=== PATIENT | female | born 1975 | race Caucasian/White ===

== ENCOUNTER → 2019-09-13 14:32 | Outpatient (BNVA) | payer SELFPAY | PROVIDERS: Visit Provider Obstetrics & Gynecology | DX: Z34.93 Encounter for supervision of normal pregnancy, unspecified, third trimester (principal) | CPT/HCPCS: 76805; 80053; 80307; 81000; 82950; 85027; 86592; 86803; 86850; 86900; 87340; 87491; 87591; 88175 ==

== ENCOUNTER → 2019-09-14 15:03 | Outpatient (BNVA) | payer SELFPAY | PROVIDERS: Visit Provider Obstetrics & Gynecology | DX: Z34.90 Encounter for supervision of normal pregnancy, unspecified, unspecified trimester (principal); O09.893 Supervision of other high risk pregnancies, third trimester | CPT/HCPCS: 84443 ==

== ENCOUNTER → 2019-09-29 08:07 | Outpatient (BNVA) | payer SELFPAY | PROVIDERS: Visit Provider Obstetrics & Gynecology | DX: O99.810 Abnormal glucose complicating pregnancy (principal); Z34.90 Encounter for supervision of normal pregnancy, unspecified, unspecified trimester; Z86.32 Personal history of gestational diabetes | CPT/HCPCS: 81000; 82951; 82952 ==

== ENCOUNTER → 2019-10-27 14:48 | Outpatient (BNVA) | payer SELFPAY | PROVIDERS: Visit Provider Nurse Practitioner Women's Health | DX: O09.893 Supervision of other high risk pregnancies, third trimester (principal); O99.013 Anemia complicating pregnancy, third trimester; O99.89 Other specified diseases and conditions complicating pregnancy, childbirth and the puerperium; Z28.3 Underimmunization status; O09.299 Supervision of pregnancy with other poor reproductive or obstetric history, unspecified trimester | CPT/HCPCS: 84315; 85027 ==

== ENCOUNTER → 2019-11-10 15:03 | Outpatient (BNVA) | payer SELFPAY | PROVIDERS: Visit Provider Obstetrics & Gynecology | DX: O09.893 Supervision of other high risk pregnancies, third trimester (principal); Z3A.00 Weeks of gestation of pregnancy not specified | CPT/HCPCS: 81000; 87081 ==

== ENCOUNTER → 2019-11-17 15:20 | Outpatient (BNVA) | payer SELFPAY | PROVIDERS: Visit Provider Obstetrics & Gynecology | DX: Z34.90 Encounter for supervision of normal pregnancy, unspecified, unspecified trimester (principal) | CPT/HCPCS: 81000 ==

== ENCOUNTER → 2019-11-30 11:49 | Outpatient (BNVA) | payer SELFPAY | PROVIDERS: Visit Provider Obstetrics & Gynecology | DX: O09.893 Supervision of other high risk pregnancies, third trimester (principal); O99.820 Streptococcus B carrier state complicating pregnancy; O99.013 Anemia complicating pregnancy, third trimester; O99.89 Other specified diseases and conditions complicating pregnancy, childbirth and the puerperium; Z28.3 Underimmunization status; O24.410 Gestational diabetes mellitus in pregnancy, diet controlled; O98.813 Other maternal infectious and parasitic diseases complicating pregnancy, third trimester; Z3A.39 39 weeks gestation of pregnancy | CPT/HCPCS: 81000 ==

== ENCOUNTER 2019-12-01 00:19 | Outpatient (CLI) | payer SELFPAY ==
[2019-12-01 00:33] VITALS: BMI 32.9
[2019-12-01 00:44] VITALS: BP 116/70; PULSE 93; RESP 18; TEMP 36.7
[2019-12-01 00:58] VITALS: BP 0/0
[2019-12-01 00:59] VITALS: BP 114/71; PULSE 85
[2019-12-01 01:14] VITALS: BP 101/59; PULSE 82
[2019-12-01 01:27] LABS: Actim Prom Negative
[2019-12-01 01:29] VITALS: BP 100/60; PULSE 79
[2019-12-01 01:30] LABS: Nitrazine Paper, PH Inconclusive
[2019-12-01 01:48] VITALS: BP 100/60; PULSE 79; RESP 16; TEMP 36.7
== END 2019-12-01 01:52 | disposition home or self-care (01) ==
LOC: OPOB 00:23 → OBGYN 00:43
PROVIDERS: Obstetrics & Gynecology; Visit Provider Obstetrics & Gynecology
DX: O26.899 Other specified pregnancy related conditions, unspecified trimester (principal); Z3A.00 Weeks of gestation of pregnancy not specified
CPT/HCPCS: 59025; 83986; 84112; 99211

== ENCOUNTER 2019-12-04 22:20 | Inpatient (IN) | payer SELFPAY ==
[2019-12-04] VITALS (10 sets, daily range): BP systolic 0–146; BP diastolic 0–77; PULSE 79–87; TEMP 36.7; BMI 32.9
[2019-12-04] MEDS: ampicillin 2,000 MG in sodium chloride 0.9% (plus) 50 ML 100 MG IV (22:34)
[2019-12-04 22:44] LABS: Basophils % 0.2 %; Eosinophils % 0.1 %; Hematocrit 38.6 % (37.0-47.0); Hemoglobin 12.5 g/dL (11.5-15.3); Lymphocytes # 1.4 10^3/uL (0.8-4.8); Lymphocytes % 12.5 %; Mean Corpuscular HGB Conc 32.4 g/dL (30.0-36.0); Mean Corpuscular Hemoglobin 30.6 pg (28.0-34.0); Mean Corpuscular Volume 94.4 fL (81-99); Mean Platelet Volume 10.4 fL (7.4-10.4); Monocytes # 0.7 10^3/uL (0.2-0.9); Monocytes % 5.8 %; Neutrophils # 9.1 10^3/uL (1.8-7.7); Neutrophils % 80.8 %; Nucleated Red Blood Cells % 0 %; Platelet Count 147 10^3/cmm (130-400); Red Blood Count 4.09 10^6/uL (4.1-5.3); Red Cell Distribution Width 16.7 % (12.1-15.1); White Blood Count 11.3 10^3/uL (4.0-10.0)
[2019-12-05] VITALS (18 sets, daily range): BP systolic 0–134; BP diastolic 0–89; PULSE 60–94; RESP 16–18; TEMP 36.4–36.8; O2SAT 96–97
--- NOTE | 2019-12-05 00:48 | P.PCNOB_ITS ---
Delivery Note: Date of delivery: December 05, 2019 Pre-delivery diagnoses: Term Post-delivery diagnoses: delivered Procedure: Spontaneous vaginal delivery Delivering Physician: Jeremy Bello M.D. Estimated blood loss (mL): 500 Findings: Type of delivery: Spontaneous vaginal delivery Complicated by shoulder dystocia resolved with Nicolette maneuver. Baby Male . Apgars: 8/9. weight: 4770 g. EBL: 500 mL. Lacerations: None. Pre-Delivery Course: The patient is a 44yo G 14 P 11 at 39+5 weeks EGA who has been receiving care from [facility]. She has been experiencing painful uterine contractions for the past 4 hours. The contractions are occurring at 4 minute intervals with approximately 30 second duration. She continues to feel movement between the contractions. She denies vaginal bleeding or rupture of membranes. LMP: 03/02/2019 Estimated date of confinement: 12/07/2019 CC: Onset of labor at term. HPI: Received appropriate care. Daily vitamins since start of care. labs have all been normal, including negative for HIV. She was found to positive for Group B Strep from screening at 36 weeks. She has gained approximately 8 lbs throughout the . She denies a history of HTN during . Glucose tolerance screening for gestational diabetes was negative. Delivery: The patient was noted to be complete and pushing, so was placed in the dorsal lithotomy position, prepped and draped in the usual sterile fashion for a vaginal delivery. Pt. Noted to have no anesthesia. At time the patient delivered a Viable At term Male weighing 4770 g with scores of 8 and 9 at one and five minutes, respectively. The vertex was delivered spontaneously over Intact perineum. The patient was asked to push and the head delivered spontaneously in the TANG position, over an intact perineum. After delivery of the head we were unable to deliver the anterior shoulder by applying moderate downward motion. The diagnosis of shoulder dystocia was made. The patient and her family as well as the attending staff were in formed. The nursing staff were instructed to assist with the Nicolette maneuver, the nurse was instructed to proceed with supra-pubic pressure and delivery of the anterior shoulder was successful in less than a 10 seconds. A nuchal cord was checked and None noted. The remainder of the infant was easily delivered and the oropharynx and nasopharynx was bulb suctioned. The infant was noted to have spontaneous cry and spontaneous movement of all four extremities. The cord was clamped x 2 and cut and noted to have 2 arteries and one vein. The infant was passed to the Mother's abdomen where Nursing personnel were in attendance. The placenta delivered intact spontaneously and the uterus Was explored. 20 units of Pitocin was placed in the IV bag to firm the uterus. Examination of the cervix and vaginal vault did not reveal any lacerations. A vaginal pack was then placed. Patient was instructed to administer the patient Methergine control bleeding. Examination of the perineum showed No lacerations. The vaginal pack was then removed. The patient tolerated this procedure well, and recovered in L&D with her infant To the OB marin. All sponge and needle counts were correct. Post-Delivery Status: Stable Coding Level of Care Code Acute Cathode Ray Tube Assembler for Shirag Latoya
[2019-12-05] MEDS: lanolin oint 7 gm 1 APPLIC TOPICAL (02:11)
[2019-12-05] MEDS: benzocaine-menthol 78 gm Canister 1 SPRAY TOPICAL (02:12)
[2019-12-05] MEDS: prenatal vitamin Capsule 1 CAP PO (08:56)
[2019-12-05] MEDS: docusate sodium 100 mg Capsule PO ×2 (08:56→18:17)
[2019-12-05 13:00] LABS: Hematocrit 36.7 % (37.0-47.0); Mean Corpuscular HGB Conc 32.7 g/dL (30.0-36.0); Mean Corpuscular Hemoglobin 31.3 pg (28.0-34.0); Mean Corpuscular Volume 95.8 fL (81-99); Mean Platelet Volume 10.5 fL (7.4-10.4); Platelet Count 169 10^3/cmm (130-400); Red Blood Count 3.83 10^6/uL (4.1-5.3); Red Cell Distribution Width 16.6 % (12.1-15.1); White Blood Count 11.5 10^3/uL (4.0-10.0)
[2019-12-06 06:00] VITALS: BP 108/71; PULSE 80; RESP 16; TEMP 36.4
[2019-12-06 09:56] VITALS: BP 132/82; PULSE 66; RESP 18; TEMP 36.5; O2SAT 98
--- NOTE | 2019-12-06 12:22 | PM.OBGYDC ---
Discharge Providers SUPERVISOR PHOSPHATIC FERTILIZER Date of Admission: 12/04/19 22:20 Date of Discharge: 12/06/19 Attending Provider at Admission: Jeremy Bello MD Attending Provider at Discharge: Jeremy Bello MD Diagnoses at Discharge Discharge Diagnosis (1) Term delivered: Status: Acute Problem details: Status post spontaneous vaginal delivery day 1. Afebrile and hemodynamically stable Reason for Visit Reason for Visit: -LABOR Hospital Course Hospital Course: The patient is a 44yo G 14 P 11 at 39+5 weeks EGA who has been receiving care from [facility]. She has been experiencing painful uterine contractions for the past 4 hours. The contractions are occurring at 4 minute intervals with approximately 30 second duration. She continues to feel movement between the contractions. She denies vaginal bleeding or rupture of membranes. LMP: 03/02/2019 Estimated date of confinement: 12/07/2019 CC: Onset of labor at term. HPI: Received appropriate care. Daily vitamins since start of care. labs have all been normal, including negative for HIV. She was found to positive for Group B Strep from screening at 36 weeks. She has gained approximately 8 lbs throughout the . She denies a history of HTN during . Glucose tolerance screening for gestational diabetes was negative. Came to labor and delivery complaining of contractions. She was admitted in active labor and progressed to have a spontaneous vaginal delivery complicated by shoulder dystocia resolved by McRobert's maneuver. observation was uneventful. She is tolerating diet well ambulating without difficulty. Scheduled to return next week Friday with the infant for circumcision by Dr. Lynch. She is afebrile hemodynamically stable Information Peripartum Data: Infant Delivery Method: Vaginal Physical Exam Narrative: EXAM NARRATIVE: GA; alert and oriented x 3 HEENT: normal Breasts: engorged Nipples - skin intact Lungs; clear to auscultation Heart: regular rhythm, no murmurs. Abd: Appropriately tender. BS+. Uterine fundus below umbilicus. No Fundal Tenderness. Perineum: normal lochia. Extremities: no edema, no cyanosis, no tenderness. Discharge Data Data Completed and Pending: Labs from last 24 hours 12/05/19 12:45 WBC 11.5 H RBC 3.83 L Hgb 12.0 Hct 36.7 L MCV 95.8 MCH 31.3 MCHC 32.7 RDW 16.6 H Plt Count 169 MPV 10.5 H Laboratory Tests 12/04/19 22:20 WBC 11.3 H Hgb 12.5 Hct 38.6 Plt Count 147 Vitals: Last Vital Signs Temp 97.7 F 12/06/19 09:56 Pulse 66 12/06/19 09:56 Resp 18 12/06/19 09:56 BP 132/82 12/06/19 09:56 Pulse Ox 98 12/06/19 09:56 Discharge Plan Discharge Patient Disposition: Home, Self-Care Condition: Stable Prescriptions: New acetaminophen 325 mg Tablet 650 mg PO Q6H PRN (Reason: Mild pain or temp > 100.4) Qty: 60 RF: 0 docusate sodium 100 mg Capsule 100 mg PO BID Qty: 60 RF: 0 ibuprofen 800 mg Tablet 800 mg PO TID Qty: 60 RF: 0 Continued herbal calcium extract PO BID RF: 0 herbal iron extract PO BID RF: 0 c veg minerals PO DAILY RF: 0 prenat.vits,annie,syl-jekk-fjknk Tablet 1 tab PO DAILY RF: 0 yeast fungal detox PO DAILY RF: 0 cyruta plus PO DAILY RF: 0 Adult Probiotic 3 billion cell capsule 3,000 mmu cells PO DAILY RF: 0 evening primrose oil 500 mg capsule 500 mg PO DAILY RF: 0 ferrous sulfate 325 mg (65 mg iron) tablet,delayed release (DR/EC) 325 mg PO BID RF: 0 folic acid 400 mcg tablet 0.4 mg PO DAILY RF: 0 lecithin PO RF: 0 calcium carbonate PO RF: 0 28 mg iron- 800 mcg Tablet 1 tab PO DAILY RF: 0 Discharge Orders: Discharge Order (Routine); Ordered 12/06/19 Ordered By: Jeremy Bello Referrals: Jeremy Bello MD [Physician] - Discharge Diet: Regular Discharge Activity: Increase activity as tolerated Patient Instructions: Vitamins (By mouth), OB Discharge Report, OB Food/Drug Interaction Guide, OB Proud Parent Packet, OB Vaginal Deliveries Activity Restrictions/Additional Instructions: Pelvic rest for 6 weeks (no sex, no tampons, no vaginal douches). Return to the emergency room if any fever, increased bleeding or pain. Discharge Attestations SUPERVISOR PHOSPHATIC FERTILIZER Time Spent in Discharge Care*: greater than 30 min Specific Discharge Activities: Specific discharge activities: educating patient and educating and/or supporting family/caregiver Coding Level of Care Code Acute Undertaker Helper for Chg Fwd Diagnoses Term delivered O80
--- NOTE | 2019-12-06 13:41 | PC.NURSE ---
Verified with patient that she did not want a follow up appointments with [facility]. Patient stated she went with her last one but wasn't sure if she would or not. Patient instructed to call women's [facility] and make an appointment if she desired one. Patient verbalized understanding.
[2019-12-06 13:46] VITALS: BP 128/78; PULSE 68; RESP 16; TEMP 36.6; O2SAT 99
== END 2019-12-06 13:12 | disposition home or self-care (01) | DRG 807 ==
LOC: OPOB 22:31 → OBGYN 22:31
PROVIDERS: Admitting Provider Obstetrics & Gynecology; Visit Provider Obstetrics & Gynecology
DX: O99.824 Streptococcus B carrier state complicating childbirth (principal); Z37.0 Single live birth; O66.0 Obstructed labor due to shoulder dystocia; Z3A.39 39 weeks gestation of pregnancy
CPT/HCPCS: 12345; 36415; 59409; 85025; 85027; 99211; J0290

== ENCOUNTER → 2021-09-11 12:14 | Outpatient (BNVA) | payer SELFPAY | PROVIDERS: Visit Provider Obstetrics & Gynecology | DX: Z34.90 Encounter for supervision of normal pregnancy, unspecified, unspecified trimester (principal) | CPT/HCPCS: 80307; 81000; 82950; 84443; 85027; 86592; 86803; 86850; 86900; 87086; 87340; 87491; 87591 ==

== ENCOUNTER → 2021-09-12 00:01 | Outpatient (BNVA) | payer SELFPAY | PROVIDERS: Visit Provider Obstetrics & Gynecology | DX: Z34.90 Encounter for supervision of normal pregnancy, unspecified, unspecified trimester (principal) | CPT/HCPCS: 84439; 84481 ==

== ENCOUNTER → 2021-09-13 08:18 | Outpatient (BNVA) | payer SELFPAY | PROVIDERS: Visit Provider Obstetrics & Gynecology | DX: Z34.90 Encounter for supervision of normal pregnancy, unspecified, unspecified trimester (principal) | CPT/HCPCS: 82951; 82952 ==

== ENCOUNTER → 2021-10-10 08:51 | Outpatient (BNVA) | payer SELFPAY | PROVIDERS: Visit Provider Obstetrics & Gynecology | DX: O09.90 Supervision of high risk pregnancy, unspecified, unspecified trimester (principal); R79.89 Other specified abnormal findings of blood chemistry; Z3A.00 Weeks of gestation of pregnancy not specified | CPT/HCPCS: 76805; 80053; 81000; 84443; 85025; 87086 ==

== ENCOUNTER 2021-12-03 08:19 | Outpatient (CLI) | payer SELFPAY ==
--- NOTE | 2021-12-03 08:30 | US_ITS ---
WS: [id number] All ULTRASOUND OB LIMITED TECHNIQUE: Limited ultrasound examination of the fetus. G 15 P12 CLINICAL INFORMATION: O09.299 - Supervision of with other poor reprod... COMPARISON: October 10, 2021 FINDINGS: Cervix is long and closed measuring 4.6 cm Single interuterine gestation. Placental location is anterior. Placenta grade: 1 heart rate 144 BPM. COTY 11.5 cm presentation is breech. Anatomy: BDP: 7.0 cm = 28w0d HC: 27.4 cm = 29w6d AC: 24.7 cm = 28w6d FEMUR LENGTH: 5.4 cm = 28w5d Estimated weight: 1296 g., 66 %. EGA by ultrasound: 28w6d JAQUAN by ultrasound: 02/19/2022 US/[place] [id number] IMPRESSION: 1. Cervix is long and closed measures 4.6 cm. 2. Normal COTY. 3. presentation is breech. 4. Normal nose/lip and profile visualized today. 5. Normal interval growth.
== END 2021-12-03 08:20 | disposition home or self-care (01) ==
LOC: RAD 08:20
PROVIDERS: Visit Provider Obstetrics & Gynecology
DX: O09.299 Supervision of pregnancy with other poor reproductive or obstetric history, unspecified trimester (principal); Z3A.26 26 weeks gestation of pregnancy
CPT/HCPCS: 76816; 81000; 82951; 82952; 84439; 84443; 84481; 85027

== ENCOUNTER 2021-12-31 09:42 | Outpatient (CLI) | payer SELFPAY ==
--- NOTE | 2021-12-31 10:00 | US_ITS ---
WS: [id number] LIMITED OBSTETRICAL ULTRASOUND HISTORY: Large for gestational age. COMPARISON: 12/03/2021, 08/01/2021 Presentation: Vertex. Cervix: Closed and normal length. Placenta: Anterior, no previa or abruption. Grade: 1 HEART: FHR of 131 BPM. measurements: BPD = 8.5 cm = 34w1d; 93rd percentile HC = 30.4 cm = 33w5d; 60th percentile AC = 28.7 cm = 32w5d; 70th percentile FL = 6.3 cm = 32w5d; 57th percentile COTY: 14.1 cm, near the 50th percentile EFW: 2084 g; 72nd %. AGA by ultrasound: 33w2d JAQUAN by ultrasound: 02/16/2022 Appropriate interval growth of the fetus since the first trimester ultrasound. BPD is measuring great er than the 90th percentile for age. Today's biometry is within 2 weeks. US/[place] [id number] IMPRESSION: 1. Single intrauterine gestation of 33 weeks 2 days with an EDC of 02/16/2022. A ppropriate growth since the first trimester ultrasound. 2. head measuring at the 93rd percentile for age. 3. Estimated weight at the 72nd percentile for age.
== END 2021-12-31 09:43 | disposition home or self-care (01) ==
PROVIDERS: Visit Provider Obstetrics & Gynecology
DX: O09.299 Supervision of pregnancy with other poor reproductive or obstetric history, unspecified trimester (principal); O09.90 Supervision of high risk pregnancy, unspecified, unspecified trimester
CPT/HCPCS: 76816; 81000; 84439; 84443; 84481

== ENCOUNTER → 2022-01-14 09:09 | Outpatient (BNVA) | payer SELFPAY | PROVIDERS: Visit Provider Obstetrics & Gynecology | DX: O09.90 Supervision of high risk pregnancy, unspecified, unspecified trimester (principal); O99.891 Other specified diseases and conditions complicating pregnancy; Z64.1 Problems related to multiparity; O09.299 Supervision of pregnancy with other poor reproductive or obstetric history, unspecified trimester; Z86.32 Personal history of gestational diabetes; O99.019 Anemia complicating pregnancy, unspecified trimester; E03.9 Hypothyroidism, unspecified; Z3A.00 Weeks of gestation of pregnancy not specified; D64.9 Anemia, unspecified | CPT/HCPCS: 81000 ==

== ENCOUNTER → 2022-01-28 14:10 | Outpatient (BNVA) | payer SELFPAY | PROVIDERS: Visit Provider Obstetrics & Gynecology | DX: O09.90 Supervision of high risk pregnancy, unspecified, unspecified trimester (principal); E03.9 Hypothyroidism, unspecified; O99.891 Other specified diseases and conditions complicating pregnancy; Z64.1 Problems related to multiparity; O09.299 Supervision of pregnancy with other poor reproductive or obstetric history, unspecified trimester; O99.019 Anemia complicating pregnancy, unspecified trimester; Z3A.00 Weeks of gestation of pregnancy not specified; D64.9 Anemia, unspecified | CPT/HCPCS: 81000; 84439; 84443; 84481; 87081 ==

== ENCOUNTER → 2022-02-11 14:27 | Outpatient (BNVA) | payer SELFPAY | PROVIDERS: Visit Provider Obstetrics & Gynecology | DX: O09.90 Supervision of high risk pregnancy, unspecified, unspecified trimester (principal); O99.019 Anemia complicating pregnancy, unspecified trimester; O09.299 Supervision of pregnancy with other poor reproductive or obstetric history, unspecified trimester; Z86.32 Personal history of gestational diabetes; Z3A.00 Weeks of gestation of pregnancy not specified | CPT/HCPCS: 81000 ==

== ENCOUNTER 2022-02-20 09:53 | Inpatient (IN) | payer SELFPAY ==
[2022-02-20] VITALS (52 sets, daily range): BP systolic 100–173; BP diastolic 53–132; PULSE 63–117; RESP 16–18; TEMP 36.2–37.1; O2SAT 99–100; BMI 32.9
--- NOTE | 2022-02-20 08:12 | W.PM.OPSUD ---
Surgery/Procedure H&P Update DATE OF PROCEDURE: February 20, 2022 DATE H&P PERFORMED: 02/11/22 H&P UPDATE INFORMATION: I have reviewed H&P completed within last 30 days, I have examined patient prior to procedure and No changes to prior documentation Related Problem List Diagnoses (1) Hypothyroidism: (2) Anemia affecting , antepartum: (3) History of macrosomia in in prior , currently : (4) Advanced maternal age affecting , antepartum: (5) Grand multiparity: (6) Supervision of high risk , antepartum:
[2022-02-20] MEDS: dextrose 5%-lactated ringers 1,000 ML 125 ML IV ×2 (10:22→18:37)
[2022-02-20] MEDS: oxytocin 30 UNIT/500 ML BAG IV (10:22)
[2022-02-20 11:32] LABS: Basophils % 0.2 %; Eosinophils % 0.5 %; Hematocrit 39.7 % (37.0-47.0); Hemoglobin 13.1 g/dL (11.5-15.3); Lymphocytes # 0.8 10^3/uL (0.8-4.8); Lymphocytes % 14.8 %; Mean Corpuscular Hemoglobin 32.3 pg (28.0-34.0); Mean Platelet Volume 10.1 fL (7.4-10.4); Monocytes # 0.4 10^3/uL (0.2-0.9); Monocytes % 6.9 %; Neutrophils # 4.37 10^3/uL (1.8-7.7); Neutrophils % 77.2 %; Nucleated Red Blood Cells % 0 %; Platelet Count 158 10^3/cmm (130-400); Red Blood Count 4.05 10^6/uL (4.1-5.3); Red Cell Distribution Width 16.2 % (12.1-15.1); White Blood Count 5.7 10^3/uL (4.0-10.0)
[2022-02-20] MEDS: lactated ringers 1,000 ML 999 ML IV (13:10)
--- NOTE | 2022-02-20 14:37 | ANES.PREANE2 ---
Pre-Anesthetic Assessment Height/Weight: Height 1.57 m Weight 81.647 kg Temp Pulse BP Pulse Ox O2 Del Method 97.3 F L 77 120/66 100 02/20/22 12:16 02/20/22 14:21 02/20/22 14:21 02/20/22 13:44 02/20/22 09:49 Familial anesthetic complications: none Was Beta Carlos taken within 24 hours: N/A Was Clonidine taken within 24 hours: N/A Social No alcohol and No tobacco Exam alert, oriented x 3, clear to auscultation bilaterally and regular rate & rhythm Airway Submandibular: within normal limits Cervical ROM: within normal limits Mallampati: Class II Dentition: full CV/HEM Anemia Metabolic Thyroid Disease Anesthetic Plan ASA status: 2 Anesthesia: Regional (specify below) (labor epidural) Medications/Allergies Home Medications Medication Instructions Recorded Confirmed Last Taken Type cyruta plus PO DAILY 10/04/19 02/11/22 Unknown History lactobacillus combination no.8 3 3,000 mmu cells PO DAILY 10/04/19 02/11/22 Unknown History billion cell capsule (Adult Probiotic) acetaminophen 325 mg tablet 650 mg PO Q6H PRN Mild pain or 12/06/19 02/11/22 Unknown Rx temp > 100.4 #60 tabs levomefolate calcium PO 09/11/21 02/11/22 Unknown History [L-Methylfolate] magnesium PO 09/11/21 02/11/22 Unknown History prenat.vits,annie,uol-omsj-ijkdr 1 tab PO DAILY 09/11/21 02/11/22 Unknown History vitamin E acetate PO 09/11/21 02/11/22 Unknown History Sea Veg Minerals PO DAILY 10/10/21 02/11/22 Unknown History aloe vera PO 10/10/21 02/11/22 Unknown History chlorophyllin-alfalfa PO 10/10/21 02/11/22 Unknown History chromium picolinate PO 10/10/21 02/11/22 Unknown History cranberry fruit concentrate PO 10/10/21 02/11/22 Unknown History enzymes PO TID 10/10/21 02/11/22 Unknown History thytrophin PO BID 10/10/21 02/11/22 Unknown History ferrous sulfate 325 mg (65 mg 325 mg PO DAILY #90 tabs 10/15/21 02/11/22 Unknown Rx iron) tablet,delayed release Ningxia red PO BID 12/03/21 02/11/22 Unknown History evening primrose oil 500 mg capsule 500 mg PO DAILY 12/03/21 02/11/22 Unknown History herbal tinctures PO TID 12/03/21 02/11/22 Unknown History coenzyme Q10 [Co Q-10] PO 12/31/21 02/11/22 Unknown History flaxseed oil miscellaneous 12/31/21 02/11/22 Unknown History lecithin PO 12/31/21 02/11/22 Unknown History levothyroxine 25 mcg capsule 25 mcg PO DAILY #35 caps 01/01/22 02/11/22 Unknown Rx thyroid (pork) 15 mg tablet 15 mg PO DAILY #90 tabs 01/28/22 02/11/22 Unknown Rx ([place] Thyroid) Allergies Allergy/AdvReac Type Severity Reaction Status Date / Time No Known Allergies Allergy Verified 02/11/22 15:25 Current Medications Generic Name Dose Route Start Last Admin Trade Name Freq PRN Reason Stop Dose Admin Oxytocin 30 unit in 500 mls @ 1 mls/hr 02/20/22 10:00 02/20/22 12:15 Pitocin IV 10 milliunit/min .Q24H TAMMY 10 mls/hr Titration Protocol 1 MILLIUNIT/MIN Dextrose/Lactated Ringer's 1,000 mls @ 125 mls/hr 02/20/22 10:00 02/20/22 13:10 Dextrose 5%-Lactated Ringers IV Infused .Q8H TAMMY Infusion Ropivacaine 200 mg in 100 mls @ 13 mls/hr 02/20/22 12:45 02/20/22 13:09 Naropin Premix EPIDURAL 13 mls/hr .Q7H42M TAMMY Administration Lactated Ringer's 1,000 mls @ 999 mls/hr 02/20/22 12:42 02/20/22 13:10 Lactated Ringers IV 999 mls/hr .Q1H1M PRN Administration See label comments Thyroid 15 mg 02/20/22 09:00 02/20/22 12:18 Thyroid 60 Mg Tablet PO Not Given DAILY TAMMY PFSH Anesthesia Medical History No pertinent past medical history Denies diabetes, asthma, hypertension, seizures, DVT/PE. PCP: Zion Henriquez AR Surgical History No history of previous surgery Family History Grandmother Thyroid condition Maternal Heart disease Paternal Family/Other Hypertension Paternal aunt, Paternal uncle Stroke Paternal aunt, paternal uncle Breast cancer Maternal aunt diagnosed in her 40s Grandfather Diabetes Maternal Colon cancer Paternal; diagnosed at age 70 Denies family history of Ovarian cancer Hyperlipidemia Uterine cancer Social History Smoking and tobacco status: never smoked Female Reproductive History : 15 Data Anesthesia : 02/20/22 10:10 Short CBC 02/20/22 Range/Units 10:10 WBC 5.7 (4.0-10.0) 10^3/uL Hgb 13.1 (11.5-15.3) g/dL Hct 39.7 (37.0-47.0) % MCV 98.0 (81-99) fl Plt Count 158 (130-400) 10^3/cmm Neut % (Auto) 77.2 % Neut # (Auto) 4.37 (1.8-7.7) 10^3/uL Cardiac Studies: No Data to Display Anesthesia Procedures Epidural Time Out Performed: Yes Consents Signed: Procedure Consent Consent: requested by attending/covering physician, from patient, risks and benefits reviewed and patient agrees to proceed Lumbar Level: L3-L4 Epidural position: sitting Epidural procedure: sterile prep of area, 1% lidocaine to numb the area, 18 g needle, neg for paresthesia, test dose given (2% lido used for test dose), placed PCEA, no systemic response, sterile dressing applied and 0.2% Ropiavacaine @ mls/hr (13) Additional Comments: SANDRA at 5cm, cath at 10cm, bolused 5mls of 2% lido
[2022-02-20] MEDS: ondansetron 2 mg/ML SDV 2 mL 4 MG IVP (16:13)
[2022-02-20] MEDS: miSOPROStol 200 mcg Tablet 800 MCG PR (17:11)
--- NOTE | 2022-02-20 17:13 | P.PCNOB_ITS ---
Delivery Note: Date of delivery: February 20, 2022 Pre-delivery diagnoses: iup@39 w2d Post-delivery diagnoses: same-delivered Procedure: Delivering Physician: Dr. Hendrickson Estimated blood loss (mL): 100 Findings: term female in the TORO presentation. Mild shoulder dystocia relieved with Nicolette maneuver. Pre-Delivery Course: The patient was admitted for induction at term. She had pitocin started. She achieved 5 cm and had AROM performed with clear fluid. She received an epidural for pain management. She had pitocin stopped. She progressed to complete cervical dilation and began to push. Delivery: The patient had complete cervical dilation and began to push. The head delivered in the TORO position over an intact perineum under epidural anesthesia. The nose and mouth were bulb suctioned. The shoulders and body delivered atraumatically. The baby was placed onto the mother's abdomen. The cord was clamped and cut. The placenta delivered spontaneously. It was inspected and found to be intact. Inspection of the perineum revealed no laceration and no repair was required. Estimated blood loss 100 mL. Apgars on baby were 9 at 1 minute and 9 at 5 minutes. Weight of baby is 8 pounds 11 ounces. Mother and baby were stable post delivery. History History History 15 Term 12 0 Miscarriages/Ectopic 2 Living Children 12 Coding Level of Care Code Acute Senior Accounting Analyst for Chg Latoya
[2022-02-20] MEDS: meperidine 50 mg/mL INJ 12.5 MG IVP (18:35)
--- NOTE | 2022-02-20 19:10 | PC.NURSE ---
1000 PATIENT HAS LOTS OF VERY LARGE VARICOSITIES ON LEGS AND HER RIGHT LABIA IS EXTREMEMLY LARGE WELL, LEFT ONE HAS THEM WELL BUT NOT NEAR BIG RIGHT LABIA. SHE ALSO HAS LARGE AREAS AROUND HER ANKLES.
[2022-02-20] MEDS: ibuprofen 800 mg tablet PO (20:12)
[2022-02-20] MEDS: docusate sodium 100 mg Capsule PO (20:13)
[2022-02-20] MEDS: HYDROcodone-acetaminophen 5-325 mg Tablet PO (22:21)
[2022-02-21] VITALS (9 sets, daily range): BP systolic 99–118; BP diastolic 56–69; PULSE 55–61; RESP 18; TEMP 36.1–36.4
[2022-02-21 05:12] LABS: Hematocrit 37.5 % (37.0-47.0); Hemoglobin 12.4 g/dL (11.5-15.3); Mean Corpuscular HGB Conc 33.1 g/dL (30.0-36.0); Mean Corpuscular Hemoglobin 32.3 pg (28.0-34.0); Mean Corpuscular Volume 97.7 fl (81-99); Mean Platelet Volume 10.2 fL (7.4-10.4); Platelet Count 154 10^3/cmm (130-400); Red Blood Count 3.84 10^6/uL (4.1-5.3); Red Cell Distribution Width 16.1 % (12.1-15.1)
[2022-02-21] MEDS: ibuprofen 800 mg tablet PO ×2 (08:51→14:21)
[2022-02-21] MEDS: docusate sodium 100 mg Capsule PO (08:51)
[2022-02-21] MEDS: prenatal vitamin Capsule 1 CAP PO (08:51)
--- NOTE | 2022-02-21 09:28 | ANE.PACU2 ---
Inpatient post-anesthesia follow up: Airway intact: Yes Vital signs: Temperature 97.0 F Pulse Rate 55 Respiratory Rate 18 Blood Pressure 118/69 Pulse Oximetry 100 Oxygen Delivery Me thod Room Air Oxygen Flow Rate Fraction of Inspir ed Oxygen Hydration adequate: Yes Nausea and vomiting: No Pain level: 2 Mental status: Baseline Additional Comments: Shivering, demerol given IV
--- NOTE | 2022-02-21 11:22 | PM.DCS ---
Discharge Providers Date of Admission: 02/20/22 09:53 Date of Discharge: February 21, 2022 Attending Provider at Admission: Alexandria Hendrickson MD Attending Provider at Discharge: Alexandria Hendrickson MD Diagnoses at Discharge Discharge Diagnosis (1) Hypothyroidism: Status: Acute (2) Anemia affecting , antepartum: Status: Acute (3) History of macrosomia in in prior , currently : Status: Acute (4) Advanced maternal age affecting , antepartum: Status: Acute (5) Grand multiparity: Status: Acute (6) Supervision of high risk , antepartum: Status: Acute Reason for Visit Reason for Visit: IOL Hospital Course Hospital Course The patient was admitted for induction of labor. She had spontaneous delivery of a term female . She did well and was ready for discharge on day #1 Physical Exam Narrative: The patient is doing well this morning. No concerns. Normal lochia, . Const: COMMON NORMALS: no acute distress, patient oriented x3, no limitations, alert and well nourished Resp: COMMON NORMALS: normal respiratory effort EFFORT & INSPECTION: Yes able to speak in complete sentences GI: COMMON NORMALS: Soft to palpation and non-tender PALPATION: Yes Soft to palpation Extremity: COMMON NORMALS: no calf tenderness Neuro: COMMON NORMALS: patient oriented x3 SENSORIUM/ORIENTATION: Yes alert Psych: COMMON NORMALS: mental status grossly normal, Normal thought process present, cooperative, normal affect and speech normal SPEECH: Yes normal speech THOUGHT PROCESS: Normal thought process present Urinary Catheter Management: Alarcon: Cath Placed During This Visit: yes, but has since been removed by the nurse Reason for Continuing Indwelling Catheter: Not indwelling catheter Urinary Catheter Date of Insertion: 02/20/22 Urinary Catheter Time of Insertion: 13:50 Date Urinary Catheter Removed: 02/20/22 Time Urinary Catheter Discontinued: 16:55 Discharge Data Studies Completed and Pending Laboratory Results WBC 8.0 10^3/uL (4.0-10.0) 02/21/22 05:04 RBC 3.84 10^6/uL (4.1-5.3) L 02/21/22 05:04 Hgb 12.4 g/dL (11.5-15.3) 02/21/22 05:04 Hct 37.5 % (37.0-47.0) 02/21/22 05:04 MCV 97.7 fl (81-99) 02/21/22 05:04 MCH 32.3 pg (28.0-34.0) 02/21/22 05:04 MCHC 33.1 g/dL (30.0-36.0) 02/21/22 05:04 RDW 16.1 % (12.1-15.1) H 02/21/22 05:04 Plt Count 154 10^3/cmm (130-400) 02/21/22 05:04 MPV 10.2 fL (7.4-10.4) 02/21/22 05:04 Neut % (Auto) 77.2 % 02/20/22 10:10 Lymph % (Auto) 14.8 % 02/20/22 10:10 [place] % (Auto) 6.9 % 02/20/22 10:10 Eos % (Auto) 0.5 % 02/20/22 10:10 Baso % (Auto) 0.2 % 02/20/22 10:10 Neut # (Auto) 4.37 10^3/uL (1.8-7.7) 02/20/22 10:10 Lymph # (Auto) 0.8 10^3/uL (0.8-4.8) 02/20/22 10:10 [place] # (Auto) 0.4 10^3/uL (0.2-0.9) 02/20/22 10:10 Eos # (Auto) 0.0 10^3/uL (0.0-0.8) 02/20/22 10:10 Baso # (Auto) 0.0 10^3/uL (0.0-0.1) 02/20/22 10:10 Nucleated RBC % (auto) 0 % 02/20/22 10:10 Nucleated RBCs # 0.0 /100WBC 02/20/22 10:10 Vitals Last Vital Signs Temp 97.0 F L 02/21/22 02:50 Pulse 55 L 02/21/22 07:54 Resp 18 02/20/22 18:35 BP 118/69 02/21/22 07:54 Pulse Ox 100 02/20/22 13:44 O2 Del Method 02/20/22 09:49 Discharge Plan Discharge Patient Disposition: Home Condition: Stable Prescriptions: Continued cyruta plus PO DAILY Adult Probiotic 3 billion cell capsule 3,000 mmu cells PO DAILY Sea Veg Minerals PO DAILY enzymes PO TID chromium picolinate PO thytrophin PO BID chlorophyllin-alfalfa PO aloe vera PO cranberry fruit concentrate PO ferrous sulfate 325 mg (65 mg iron) tablet,delayed release (DR/EC) 325 mg PO DAILY Qty: 90 1RF Ningxia red PO BID herbal tinctures PO TID evening primrose oil 500 mg capsule 500 mg PO DAILY Rx Instructions: give with meal/snack flaxseed oil miscellaneous coenzyme Q10 [Co Q-10] PO lecithin PO thyroid (pork) [[place] Thyroid] 15 mg tablet 15 mg PO DAILY Qty: 90 4RF levomefolate calcium [L-Methylfolate] PO prenat.vits,annie,cky-gpfo-uzsmh Tablet 1 tab PO DAILY vitamin E acetate PO magnesium PO levothyroxine 25 mcg capsule 25 mcg PO DAILY Qty: 35 0RF acetaminophen 325 mg Tablet 650 mg PO Q6H PRN (Reason: Mild pain or temp > 100.4) Qty: 60 0RF Discharge Orders: Discharge Order (Routine); Ordered 02/21/22 Ordered By: Alexandria Hendrickson Referrals: Alexandria Hendrickson MD [Physician] - 03/08/22 1:15 pm Patient Instructions: Depression (GEN), Preeclampsia and Eclampsia After Delivery (GEN), Hemorrhage (GEN), OB Discharge Report, OB Food/Drug Interaction Guide, OB Care at Home, Opioid Safety, OB Home Care, OB Vaginal Deliveries - [facility], Abnormal Bleeding Discharge Attestations Time Spent in Discharge Care*: less than 30 min Quality Metrics Clinical Quality Measures [ No reported AMI, CVA or VTE this stay] Coding Level of Care Code Acute Chg FW DC note Diagnoses Hypothyroidism E03.9 Anemia affecting , antepartum O99.019 History of macrosomia in in prior , currently O09.299 Advanced maternal age affecting , antepartum Grand multiparity Z64.1 Supervision of high risk , antepartum O09.90
--- NOTE | 2022-02-21 19:13 | PC.NURSE ---
Patient Refused MMR vaccine. Education provided by nurse regarding being non-immune and patient still refused.
== END 2022-02-21 19:43 | disposition home or self-care (01) | DRG 807 ==
LOC: OPOB 13:09 → OBGYN 13:09
PROVIDERS: Admitting Provider Obstetrics & Gynecology; Visit Provider Obstetrics & Gynecology
DX: O99.284 Endocrine, nutritional and metabolic diseases complicating childbirth (principal); Z37.0 Single live birth; E03.9 Hypothyroidism, unspecified; O99.02 Anemia complicating childbirth; D64.9 Anemia, unspecified; Z3A.39 39 weeks gestation of pregnancy
CPT/HCPCS: 36415; 51702; 59025; 59409; 85025; 85027; 99211; J2175; J2405; J2795

== ENCOUNTER → 2022-03-08 14:10 | Outpatient (BNVA) | payer SELFPAY | PROVIDERS: Visit Provider Obstetrics & Gynecology | DX: E03.9 Hypothyroidism, unspecified (principal) | CPT/HCPCS: 84439; 84443; 84481 ==

== ENCOUNTER → 2024-08-10 09:28 | Outpatient (BNVA) | payer SELFPAY | PROVIDERS: Visit Provider Nurse Practitioner Women's Health | DX: R10.2 Pelvic and perineal pain (principal); E03.9 Hypothyroidism, unspecified; Z12.4 Encounter for screening for malignant neoplasm of cervix | CPT/HCPCS: 81000; 84439; 84443; 84481; 87624 ==

== ENCOUNTER 2024-09-28 09:36 | Outpatient (RCR) | payer SELFPAY | END 2024-10-13 23:59 | disposition home or self-care (01) | LOC: SPT 09:36 | PROVIDERS: Visit Provider Nurse Practitioner Women's Health | DX: N81.9 Female genital prolapse, unspecified (principal); N39.46 Mixed incontinence | CPT/HCPCS: 97110; 97161; 97530 ==

== ENCOUNTER 2024-10-14 05:00 | Outpatient (RCR) | payer SELFPAY | END 2024-11-13 23:59 | disposition home or self-care (01) | LOC: SPT 05:00 | PROVIDERS: Visit Provider Nurse Practitioner Women's Health | DX: N81.9 Female genital prolapse, unspecified (principal); N39.46 Mixed incontinence | CPT/HCPCS: 97110; 97530 ==

== ENCOUNTER 2024-11-14 05:00 | Outpatient (RCR) | payer SELFPAY | END 2024-12-13 23:59 | disposition home or self-care (01) | LOC: SPT 05:00 | PROVIDERS: Visit Provider Nurse Practitioner Women's Health | DX: N81.9 Female genital prolapse, unspecified (principal); N39.46 Mixed incontinence | CPT/HCPCS: 97110 ==

== ENCOUNTER → 2024-11-23 11:45 | Outpatient (BNVA) | payer SELFPAY | PROVIDERS: Visit Provider Nurse Practitioner Women's Health | DX: Z34.90 Encounter for supervision of normal pregnancy, unspecified, unspecified trimester (principal) | CPT/HCPCS: 76805; 80307; 81025; 82950; 84443; 85025; 86592; 86762; 86803; 86850; 86900; 87086; 87340; 87491; 87591; 87661; 87806 ==

== ENCOUNTER → 2024-11-30 14:07 | Outpatient (BNVA) | payer SELFPAY | PROVIDERS: Visit Provider Nurse Practitioner Women's Health | DX: Z64.1 Problems related to multiparity (principal) | CPT/HCPCS: 81000 ==

== ENCOUNTER 2024-12-14 05:00 | Outpatient (RCR) | payer SELFPAY | END 2025-01-13 23:59 | disposition home or self-care (01) | LOC: SPT 05:00 | PROVIDERS: Visit Provider Nurse Practitioner Women's Health | DX: N81.9 Female genital prolapse, unspecified (principal); N39.46 Mixed incontinence | CPT/HCPCS: 97110 ==

== ENCOUNTER → 2024-12-22 14:35 | Outpatient (BNVA) | payer SELFPAY | PROVIDERS: Visit Provider Obstetrics & Gynecology | DX: O09.90 Supervision of high risk pregnancy, unspecified, unspecified trimester (principal); O99.019 Anemia complicating pregnancy, unspecified trimester | CPT/HCPCS: 84315; 85025 ==

== ENCOUNTER 2025-01-14 05:00 | Outpatient (RCR) | payer SELFPAY | END 2025-02-13 23:59 | disposition home or self-care (01) | LOC: SPT 05:00 | PROVIDERS: Visit Provider Nurse Practitioner Women's Health | DX: N81.9 Female genital prolapse, unspecified (principal); N39.46 Mixed incontinence | CPT/HCPCS: 97110 ==

== ENCOUNTER → 2025-01-19 13:15 | Outpatient (BNVA) | payer SELFPAY | PROVIDERS: Visit Provider Obstetrics & Gynecology | DX: O09.90 Supervision of high risk pregnancy, unspecified, unspecified trimester (principal) | CPT/HCPCS: 84315 ==

== ENCOUNTER → 2025-02-17 08:46 | Outpatient (BNVA) | payer SELFPAY | PROVIDERS: Visit Provider Obstetrics & Gynecology | DX: Z36.4 Encounter for antenatal screening for fetal growth retardation (principal); Z3A.34 34 weeks gestation of pregnancy | CPT/HCPCS: 76816 ==

== ENCOUNTER 2025-02-17 11:04 | Outpatient (CLI) | payer SELFPAY ==
[2025-02-17 11:56] LABS: INR 0.95 (0.8-1.2); Prothrombin Time 13.40 SECONDS (12.1-14.9)
== END 2025-02-17 11:05 | disposition home or self-care (01) ==
PROVIDERS: Visit Provider Nurse Practitioner Women's Health
DX: Z01.89 Encounter for other specified special examinations (principal); Z83.2 Family history of diseases of the blood and blood-forming organs and certain disorders involving the immune mechanism
CPT/HCPCS: 36415; 82950; 84315; 85025; 85610

== ENCOUNTER 2025-03-03 09:05 | Oncology outpatient (recurring) (ONCR) | payer SELFPAY ==
[2025-03-03] MEDS: iron sucrose 200 MG in sodium chloride 0.9% (100 ml) 100 ML IV (10:29)
[2025-03-03 11:08] VITALS: BP 112/64; PULSE 68; RESP 16; TEMP 36.8; O2SAT 98
== END 2025-03-15 23:59 | disposition home or self-care (01) ==
PROVIDERS: Visit Provider Nurse Practitioner Women's Health
DX: Z33.1 Pregnant state, incidental (principal); D63.8 Anemia in other chronic diseases classified elsewhere
CPT/HCPCS: 84315; 96365; J1756; J7050

== ENCOUNTER 2025-03-03 11:09 | Outpatient (CLI) | payer SELFPAY ==
--- NOTE | 2025-03-03 11:30 | USR_ITS ---
PROCEDURE INFORMATION: Exam: US , Follow up Exam date and time: 03/03/2025 11:46 AM Age: 49 years old Clinical indication: Screening exam; Routine US, uterus; Additional info: O09.90 - supervision of high risk , unspecified LABS AND CLINICAL REPORTS: Gestational age (Established): 34 w 5 d Estimated due date (Established): 04/09/2025 TECHNIQUE: Imaging protocol: Transabdominal ultrasound of the uterus, real time with image documentation. Follow-up (eg, re-evaluation of size by measuring standard growth parameters and amniotic fluid volume, re-evaluation of organ system(s) suspected or confirmed to be abnormal on a previous scan). COMPARISON: [place] [id number] 02/17/2025 8:52 AM FINDINGS: Gestation: Single live intrauterine gestation. heart rate: 165 bpm. presentation and position: Cephalic. Placenta: Posterior. Amniotic fluid (Qualitative): Adequate amount of amniotic fluid. Amniotic fluid index: COTY is 12.63 cm. BIOMETRY: Estimated weight: 2481.59 g. EFW by AC, BPD, FL, HC, [place] 1985, 44% percentile Biparietal diameter (BPD): 8.81 cm. EGA (BPD) is 35 w 4 d. 75.7 % percentile Head circumference (HC): 30.92 cm. EGA (HC) is 34 w 4 d. 13.7 % percentile Abdominal circumference (AC): 30.41 cm. EGA (AC) is 34 w 3 d. 45.5 % percentile Femur length (FL): 6.79 cm. EGA (FL) is 34 w 6 d. 46.6 % percentile HC/AC: 1.02. (Normal range: 0.93 - 1.11) FL/HC: 21.96. (Normal range: 20 - 22.23) FL/BPD: 77.07. (Normal range: 71 - 87) FL/AC: 22.33. (Normal range: 20 - 24) MATERNAL: Cervix: Cervical length measures 0 cm. US/[place] [id number] IMPRESSION: Single live intrauterine gestation with estimated age of 34 weeks 6 days and weight of 2482 g.
== END 2025-03-03 11:10 | disposition home or self-care (01) ==
LOC: RAD 11:10
PROVIDERS: Visit Provider Obstetrics & Gynecology
DX: O09.93 Supervision of high risk pregnancy, unspecified, third trimester (principal); O09.293 Supervision of pregnancy with other poor reproductive or obstetric history, third trimester; Z3A.34 34 weeks gestation of pregnancy
CPT/HCPCS: 76816

== ENCOUNTER 2025-03-17 08:33 | Outpatient (RCR) | payer SELFPAY | END 2025-03-21 08:54 | disposition home or self-care (01) | LOC: SPT 08:33 | PROVIDERS: Visit Provider Nurse Practitioner Women's Health | DX: N81.9 Female genital prolapse, unspecified (principal); N39.46 Mixed incontinence | CPT/HCPCS: 97110; 97530 ==

== ENCOUNTER → 2025-03-17 16:16 | Outpatient (BNVA) | payer SELFPAY | PROVIDERS: Visit Provider Obstetrics & Gynecology | DX: O09.90 Supervision of high risk pregnancy, unspecified, unspecified trimester (principal) | CPT/HCPCS: 84315; 87081 ==

== ENCOUNTER → 2025-03-31 15:59 | Outpatient (BNVA) | payer SELFPAY | PROVIDERS: Visit Provider Obstetrics & Gynecology | DX: O09.90 Supervision of high risk pregnancy, unspecified, unspecified trimester (principal); O09.299 Supervision of pregnancy with other poor reproductive or obstetric history, unspecified trimester | CPT/HCPCS: 84315 ==

== ENCOUNTER → 2025-04-07 15:07 | Outpatient (BNVA) | payer SELFPAY | PROVIDERS: Visit Provider Nurse Practitioner Women's Health | DX: Z34.90 Encounter for supervision of normal pregnancy, unspecified, unspecified trimester (principal) | CPT/HCPCS: 84315 ==

== ENCOUNTER 2025-04-14 03:54 | Inpatient (IN) | payer SELFPAY ==
[2025-04-14] VITALS (16 sets, daily range): BP systolic 103–165; BP diastolic 62–76; PULSE 67–91; RESP 16; TEMP 35.7–36.7; O2SAT 99; BMI 32.9
[2025-04-14 04:16] LABS: Hematocrit 37.8 % (36-47); Hemoglobin 12.70 g/dL (11.27-16.99); Mean Corpuscular HGB Conc 33.6 g/dL (30-55); Mean Corpuscular Hemoglobin 31.1 pg (27-33); Mean Corpuscular Volume 92.4 fl (85-98); Nucleated Red Blood Cells % 0 %; Platelet Count 149 10^3/cmm (157-399); Red Blood Count 4.09 10^6/uL (3.85-5.65); White Blood Count 8.98 10^3/uL (3.29-11.43)
[2025-04-14] MEDS: oxytocin 30 UNIT/500 ML BAG 999 UNIT IV (06:36)
--- NOTE | 2025-04-14 06:45 | PM.DELIVERY ---
Delivery Note: Date of delivery: April 14, 2025 Pre-delivery diagnoses: 40 w 5 d active labor Post-delivery diagnoses: 40 w 5 d active labor vaginal delivery Procedure: vaginal delivery Op report anesthesia: None Delivering Physician: Tristan Dickson MD Estimated blood loss (mL): 500 Findings: , vigorous infant Cord gases obtained Normal placenta and cord No episiotomy / lacerations EBL: 500 cc No complications Pre-Delivery Course: normal labor course fetus reassurring throughout Delivery: vaginal Post-Delivery Status: good History History History 16 Term 13 0 Miscarriages/Ectopic 2 Living Children 13 A&P Assessment and plan 1. Vaginal delivery: PDMP PDMP Reviewed: Not Reviewed Coding Level of Care Code Acute Code for Chg Fwd Diagnoses Vaginal delivery O80
--- NOTE | 2025-04-14 14:20 | PC.NURSE ---
Addendum entered by Camilla Sales RN 04/14/25 14:58: 04/14/25 at 1330: Patient asked this nurse when she would be discharged. This nurse stated that earliest possible discharge would be [address] Dickson. This nurse educated patient on the risks of leaving the hospital before discharge. Educated patient that she is a high risk for hemorrhage. Educated patient on signs and symptoms of illness and/or hemorrhage and to go to ER if these symptoms appear. Patient stated I understand the risks. I would like to leave now. Addendum entered by Camilla Sales RN 04/14/25 14:37: 04/14/25 at 1330: Patient asked this nurse when she would be discharged. This nurse stated that earliest possible discharge would be [address] Dickson. This nurse educated patient on the risks of leaving the hospital before discharge. Educated patient that she is a high risk for hemorrhage. Educated patient on signs and symptoms that warrant an office or ER visit. Patient stated I understand the risks. I would like to leave now. Original Note: 04/14/25 at 1330: Patient stated she would like to leave AMA. This nurse educated patient on the risks of leaving the hospital before discharge.
--- NOTE | 2025-04-14 20:20 | PM.OBGYDC ---
Discharge Providers [employer] Date of Admission: 04/14/25 03:54 Date of Discharge: 04/14/25 Attending Provider at Admission: Tristan Dickson MD Attending Provider at Discharge: Tristan Dickson MD Consults: none Primary [employer]: Tristan Dickson MD Diagnoses at Discharge Discharge Diagnosis 1. Vaginal delivery: Details from hospital stay: 49 y.o. A2 [facility] April 09, 2025 no complications presented complaining of painful uterine contractions patient proceeded to complete dilatation fetus was reassuring throughout patient delivered vaginally without any complications there were no episiotomy or lacerations , on the evening of delivery, patient insisted on leaving the hospital and signed out against medical advice. Reason for Visit Reason for Visit: contractions Brief History: 49 y.o. A2 [facility] April 09, 2025 no complications presented complaining of painful uterine contractions Hospital Course Hospital Course 49 y.o. A2 [facility] April 09, 2025 no complications presented complaining of painful uterine contractions patient proceeded to complete dilatation fetus was reassuring throughout patient delivered vaginally without any complications there were no episiotomy or lacerations , on the evening of delivery, patient insisted on leaving the hospital and signed out against medical advice. Advised patient that she may be at higher risk for complications, such as infection, bleeding, etc. Patient insisted on leaving against medical advice Patient signed AMA Advised patient to return to clinic within one week for followup Advised patient to return to ER if fever, chills, headache, blurry vision, nausea, vomiting, abdominal pain; vaginal bleeding or discharge; shortness of breath, chest pain, leg pains or swelling; inability to void, perineal pain or swelling; feelings of depression or mood changes; thoughts of suicide or harming others; inability to care for baby. Information Peripartum Data: Delivery Method: Vaginal Laceration description: None complications: none Physical Exam Const: COMMON NORMALS: no acute distress, patient oriented x3 and alert Resp: COMMON NORMALS: normal respiratory effort and clear to auscultation bilaterally AUSCULTATION: clear to auscultation bilaterally Cardio: COMMON NORMALS: regular rate and regular rhythm RATE: regular rate RHYTHM: regular rhythm GI: COMMON NORMALS: Normal to inspection, nondistended, normoactive bowel sounds present and non-tender Neuro: COMMON NORMALS: patient oriented x3 SENSORIUM/ORIENTATION: Yes alert History History History 16 Term 13 0 Miscarriages/Ectopic 2 Living Children 13 Discharge Data Studies Completed and Pending Laboratory Results WBC 8.98 10^3/uL (3.29-11.43) 04/14/25 03:35 RBC 4.09 10^6/uL (3.85-5.65) 04/14/25 03:35 Hgb 12.70 g/dL (11.27-16.99) 04/14/25 03:35 Hct 37.8 % (36-47) 04/14/25 03:35 MCV 92.4 fl (85-98) 04/14/25 03:35 MCH 31.1 pg (27-33) 04/14/25 03:35 MCHC 33.6 g/dL (30-55) 04/14/25 03:35 RDW 15.1 % (12.1-15.1) 04/14/25 03:35 Plt Count 149 10^3/cmm (157-399) L 04/14/25 03:35 MPV 10.3 fL (7.4-10.4) 04/14/25 03:35 Neut % (Auto) 80.1 % 04/14/25 03:35 Lymph % (Auto) 12.5 % 04/14/25 03:35 [place]arnett % (Auto) 6.3 % 04/14/25 03:35 Eos % (Auto) 0.4 % 04/14/25 03:35 Baso % (Auto) 0.3 % 04/14/25 03:35 Neut # (Auto) 7.18 10^3/uL (1.8-7.7) 04/14/25 03:35 Lymph # (Auto) 1.1 10^3/uL (0.8-4.8) 04/14/25 03:35 [place]arnett # (Auto) 0.6 10^3/uL (0.2-0.9) 04/14/25 03:35 Eos # (Auto) 0.0 10^3/uL (0.0-0.8) 04/14/25 03:35 Baso # (Auto) 0.0 10^3/uL (0.0-0.1) 04/14/25 03:35 Nucleated RBC % (auto) 0 % 04/14/25 03:35 Nucleated RBCs # 0.0 /100WBC 04/14/25 03:35 Blood Type A Positive 04/14/25 03:35 Rho(D) Type Rh positive 04/14/25 03:35 Antibody Screen Negative 04/14/25 03:35 Procedures Performed vaginal delivery Vitals Last Vital Signs Temp 98.0 F 04/14/25 13:56 Pulse 75 04/14/25 13:56 Resp 16 04/14/25 13:56 BP 103/65 04/14/25 13:56 Pulse Ox 99 04/14/25 13:56 O2 Del Method Room Air 04/14/25 13:56 Results Labs OB ([facility]): Obstetrics US 03/03/25 Blood Type A Positive 04/14/25 Antibody Screen Negative 04/14/25 Hct, (36-47) 37.8 % 04/14/25 Hgb, (11.27-16.99) 12.70 g/dL 04/14/25 Rho(D) Type Rh positive 04/14/25 Plt Count, (157-399) 149 10^3/cmm L 04/14/25 Hep Bs Antigen, (Nonreactive) Non-reactive 11/23/24 Hepatitis C Antibody, (Nonreactive) Non-reactive 11/23/24 Rubella IgG Antibody, (0.0-10.0) 0.2 IU/mL 11/23/24 RPR, (Nonreactive) Nonreactive 11/23/24 HIV 1&2 Ab & HIV 1 Ag, (Non-Reactiv) Non-reactive 11/23/24 TSH, (0.27-4.20) 2.64 uIU/mL 11/23/24 Free T4, (0.82-1.77) 1.07 ng/dL 08/10/24 Glucose 1 Hr 50 gm, (85-140) 130 mg/dL 02/17/25 HCG, Qual, (Negative) Positive H 11/23/24 Urine Opiates Screen, (Negative) Negative ng/mL 11/23/24 Ur Barbiturates Screen, (Negative) Negative ng/mL 11/23/24 Ur Phencyclidine Scrn, (Negative) Negative ng/mL 11/23/24 Ur Amphetamines Screen, (Negative) Negative ng/mL 11/23/24 U Benzodiazepines Scrn, (Negative) Negative ng/mL 11/23/24 Urine Cocaine Screen, (Negative) Negative ng/mL 11/23/24 U Marijuana (THC) Screen, (Negative) Negative ng/mL 11/23/24 Micro Urine Specimen 11/23/24 Pap Smear Interpret See note 08/10/24 Discharge Plan Discharge Patient Disposition: Left Against Medical Advice Prescriptions: No Action cyruta plus 1 tab PO DAILY Adult Probiotic 3 billion cell capsule 3,000 mmu cells PO DAILY Sea Veg Minerals 1 dose PO DAILY enzymes 1 tab PO TID chromium picolinate 1 tab PO DAILY aloe vera 1 tab PO DAILY herbal tinctures 1 amp PO TID levomefolate calcium [L-Methylfolate] 1 tab PO BID magnesium 1 tab PO DAILY levothyroxine 25 mcg capsule 25 mcg PO DAILY Qty: 90 5RF Patient Instructions: Depression (DC), Bleeding (DC), Preeclampsia and Eclampsia After Delivery (GEN), Hemorrhage (DC), OB Discharge Report, OB Food/Drug Interaction Guide, OB Home Care, OB Proud Parent Packet, OB Vaginal Deliveries - [facility] Discharge Attestations [employer] Time Spent in Discharge Care*: less than 30 min Coding Level of Care Code Acute Code for Chg Fwd Diagnoses Vaginal delivery O80
== END 2025-04-14 14:40 | disposition left against medical advice (07) | DRG 807 ==
LOC: OPOB 03:55 → OBGYN 03:55
PROVIDERS: Admitting Provider Obstetrics & Gynecology; Visit Provider Obstetrics & Gynecology
DX: O48.0 Post-term pregnancy (principal); Z37.0 Single live birth; Z3A.40 40 weeks gestation of pregnancy; Z53.29 Procedure and treatment not carried out because of patient's decision for other reasons
CPT/HCPCS: 36415; 59025; 59409; 85025; 86850; 86900; 99211; J2590; J7121

== ENCOUNTER → 2025-05-23 09:34 | Outpatient (BNVA) | payer SELFPAY | PROVIDERS: Visit Provider Nurse Practitioner Women's Health | DX: O90.81 Anemia of the puerperium (principal) | CPT/HCPCS: 85025 ==